=== PATIENT | female | born 1935 | race Caucasian/White ===

== ENCOUNTER 2021-05-30 00:23 | Inpatient (IN) | payer OTHER, MEDICARE ==
[2021-05-30 00:58] VITALS: BMI 18.6
[2021-05-30] MEDS ORDERED: Acetaminophen 325 MG TAB PO PRN (01:07)
[2021-05-30] MEDS: Ampicillin/Sulbactam 3 GM in Sodium Chloride 0.9% 100 ML IVPB SCH ×4 (02:57→20:54)
[2021-05-30] MEDS ORDERED: Rabies Vaccine Human 2.5 UNITS VIAL IM ONE (03:00)
[2021-05-30] MEDS ORDERED: Vancomycin HCl 1 GM in Sodium Chloride 0.9% 250 ML 250 ML IVPB SCH (03:00)
[2021-05-30] MEDS ORDERED: Morphine 2 MG/ML VIAL SLOW IVP PRN (03:49)
[2021-05-30] MEDS: Azithromycin 500 MG in Sodium Chloride 0.9% 250 ML 250 ML IVPB SCH (04:00)
[2021-05-30 04:34] LABS: #Basophils 0.1 10x3/uL (0.0-0.2); #Eosinphils 0.3 10x3/uL (0.0-0.5); #Monocytes 1.3 10x3/uL (0.0-1.1); %Basophils 0.7 % (0.0-2.0); %Eosinophils 2.1 % (0.0-6.0); %Lymphocytes 11.9 % (18.0-47.0); %Monocytes 10.9 % (0.0-10.0); %Neutrophils 74.1 % (40.0-75.0); Hemoglobin 11.1 g/dL (12.0-15.5); Mean Corpuscular HGB CONC 32.6 g/dL (32.0-36.0); Mean Corpuscular Hemoglobin 30.3 pg (27.0-33.0); Mean Corpuscular Volume 92.9 fl (81.6-98.3); Mean Platelet Volume 10.1 fl (7.4-10.4); Platelet Count 186 10x3/uL (150-450); RBC Distribution Width 15.9 % (11.5-14.5); Red Blood Cell (RBC) Count 3.66 10x6/uL (3.90-5.03); White Blood Cell (WBC) Count 12.2 10x3/uL (3.5-10.5)
[2021-05-30 04:49] LABS: Anion Gap 13 mmol/L (10-20); BUN (Urea Nitrogen) 17 mg/dL (9.8-20.1); Calc. Creatinine Clearance 39 mL/min (70-130); Calcium 8.5 mg/dL (7.8-10.44); Carbon Dioxide 22 mmol/L (23-31); Chloride 104 mmol/L (98-107); Glucose 119 mg/dL (83-110); Potassium 3.8 mmol/L (3.5-5.1); Sodium 135 mmol/L (136-145)
[2021-05-30] MEDS ORDERED: hydrALAZINE 20 MG/ML VIAL SLOW IVP PRN (08:10)
[2021-05-30] MEDS ORDERED: Ondansetron PF 4 MG/2 ML Vial IVP PRN (10:56)
[2021-05-30] MEDS: Aspirin 81 mg Enteric Coated Tablet PO SCH (10:56)
[2021-05-30] MEDS: Enoxaparin Sodium 30 MG/0.3 ML SYRINGE SC SCH (10:57)
[2021-05-30] MEDS: Losartan 25 MG TAB PO SCH (10:58)
[2021-05-30] MEDS ORDERED: Thyroid 60 MG TAB PO SCH (12:00)
[2021-05-30] MEDS: Atorvastatin Calcium 10 MG TAB PO SCH (20:54)
[2021-05-30] MEDS ORDERED: Azithromycin 500 MG in Syringe 0 ML IVPB SCH (22:00)
[2021-05-31] MEDS ORDERED: Vancomycin HCl 500 MG in Sodium Chloride 0.9% 100 ML IVPB SCH (03:00)
[2021-05-31] MEDS: Ampicillin/Sulbactam 3 GM in Sodium Chloride 0.9% 100 ML IVPB SCH ×4 (03:31→20:15)
[2021-05-31] MEDS: Azithromycin 500 MG in Sodium Chloride 0.9% 250 ML 250 ML IVPB SCH (04:20)
[2021-05-31 05:22] LABS: #Basophils 0.1 10x3/uL (0.0-0.2); #Eosinphils 0.5 10x3/uL (0.0-0.5); #Monocytes 0.9 10x3/uL (0.0-1.1); #Neutrophils 5.1 10x3/uL (1.5-8.4); %Basophils 0.8 % (0.0-2.0); %Eosinophils 6.4 % (0.0-6.0); %Lymphocytes 18.3 % (18.0-47.0); %Monocytes 10.7 % (0.0-10.0); %Neutrophils 63.5 % (40.0-75.0); Hemoglobin 10.5 g/dL (12.0-15.5); Mean Corpuscular HGB CONC 32.7 g/dL (32.0-36.0); Mean Corpuscular Hemoglobin 30.9 pg (27.0-33.0); Mean Corpuscular Volume 94.4 fl (81.6-98.3); Mean Platelet Volume 10.7 fl (7.4-10.4); Platelet Count 209 10x3/uL (150-450); RBC Distribution Width 15.8 % (11.5-14.5)
[2021-05-31 05:49] LABS: Anion Gap 12 mmol/L (10-20); BUN (Urea Nitrogen) 12 mg/dL (9.8-20.1); Calc. Creatinine Clearance 43 mL/min (70-130); Calcium 8.5 mg/dL (7.8-10.44); Carbon Dioxide 25 mmol/L (23-31); Chloride 106 mmol/L (98-107); Glucose 79 mg/dL (83-110); Potassium 3.8 mmol/L (3.5-5.1); Sodium 139 mmol/L (136-145)
[2021-05-31] MEDS ORDERED: Enoxaparin Sodium 30 MG/0.3 ML SYRINGE ONE (08:08)
[2021-05-31] MEDS: Aspirin 81 mg Enteric Coated Tablet PO SCH (08:53)
[2021-05-31] MEDS: Enoxaparin Sodium 30 MG/0.3 ML SYRINGE SC SCH (08:53)
[2021-05-31] MEDS: Losartan 25 MG TAB PO SCH (08:53)
[2021-05-31] MEDS ORDERED: Thyroid 60 MG TAB PO SCH (09:00)
[2021-05-31] MEDS ORDERED: Magnevist 469MG/ML 20 ML VIAL ONE (15:00)
[2021-05-31] MEDS: Atorvastatin Calcium 10 MG TAB PO SCH (20:17)
[2021-06-01] MEDS: Ampicillin/Sulbactam 3 GM in Sodium Chloride 0.9% 100 ML IVPB SCH ×3 (02:54→15:03)
[2021-06-01] MEDS ORDERED: Thyroid 60 MG TAB PO SCH (06:00)
[2021-06-01] MEDS: Losartan 25 MG TAB PO SCH (08:19)
[2021-06-01] MEDS: Aspirin 81 mg Enteric Coated Tablet PO SCH (08:19)
[2021-06-01] MEDS: Enoxaparin Sodium 30 MG/0.3 ML SYRINGE SC SCH (08:19)
[2021-06-01 12:54] VITALS: TEMP 98.6
[2021-06-01 16:32] VITALS: BP 148/70
== END 2021-06-01 17:24 | disposition home or self-care (01) | DRG 603 ==
LOC: CSHTELE 00:23
PROVIDERS: ADMIT Family Medicine; ATTEND Hospitalist
DX: L03.113 Cellulitis of right upper limb (principal); I25.10 Atherosclerotic heart disease of native coronary artery without angina pectoris; E03.9 Hypothyroidism, unspecified; I10 Essential (primary) hypertension; E78.5 Hyperlipidemia, unspecified; I25.2 Old myocardial infarction; Z90.89 Acquired absence of other organs; Z95.5 Presence of coronary angioplasty implant and graft
CPT/HCPCS: 36415; 80048; 83735; 84439; 84443; 85025; 90376; 90675; A9579; J0295; J0456; J1650; J2405; J3370; J3490; J7050